=== PATIENT | female | born 1955 | race Caucasian/White ===

== ENCOUNTER → 2018-09-01 | Outpatient (CLI) | payer OTHER ==
[~2018-09-01] MED LIST: ACE325 PO; AUG875 PO; CIPHCO OT; DESO1TAB32 PO; DIP25 PO; IBU200 PO; MULT-1335 PO; THYR60TA25 PO
--- NOTE | 2018-09-01 14:01 | RADIOLOGY IMAGING REPORT ---
FACILITY: [facility] - [place] PATIENT NAME: Minoo Diaz : 1955 MR: [id number] V: [id number] EXAM DATE: ORDERING PHYSICIAN: SUKHJINDER ASCENCIO TECHNOLOGIST: Location: [facility] [place] Patient: Minoo Diaz : 1955 Visit/Account:[id number] Date of Sevice: 09/01/2018 DEXA Scan HISTORY: Postmenopausal, hyperthyroidism. COMPARISON: 10/03/2009. LUMBAR SPINE: The bone mineral density (BMD) measured from L1-L4 correlates with a Z-score of -0.9 and a T-score of -2.4 which is compatible with osteopenia as defined by the World Health Organization. The correspon ding risk of fracture in the lumbar spine is increased 4-6 times compared with a young adult referenc e population. This value has decreased by 15.2 % since the prior study. More than 5% change is cons idered significant. HIP: Bone mineral density (BMD) measured in the left total hip region correlates with a Z-score of -0.5 an d a T-score of -1.7 which is compatible with osteopenia as defined by the World Health Organization. The corresponding risk of fracture in the hip is increased 3-4 times compared with a young adult ref erence population. This value in the total hip has decreased by 15.1 % since the prior study. More t wylie 5% change is considered significant. Bone mineral density (BMD) measured in the left Femoral Neck region measures 0.851 g/cm2. IMPRESSION: 1. Lumbar spine: Compatible with osteopenia. There has been significant decrease in the bone kalsominer al density since the previous exam. 2. Left Total Hip: Compatible with osteopenia. There has been significant decrease in the bone min eral density since the previous exam. 3. Left Femoral Neck: Bone Mineral Density is 0.851 g/cm2 The next DEXA scan of this patient should include the following sites: L1-L4 and left hip. FRAX? WHO Fracture Risk Assessment Tool link: <http://www.shef.ac.uk/FRAX/tool.jsp?[email or web address]> PLEASE NOTE: 1) The World Health Organization defines low BMD as follows: T-score Normal > -1 Osteopenia < -1 and > -2.5 Osteoporosis < -2.5 without fractures Established osteoporosis < -2.5 with fractures 2) In general, you may wish to consider: Diagnosis Treatment Follow-up DEXA Normal BMD Prevention 2-3 years Osteopenia Prevention/therapy 1-2 years Osteoporosis Therapy Yearly 3) Fracture risk estimated from the T-score is more accurate for vertebral fractures (often spontane ous) than for hip fractures. Report Dictated By: Kerry Gómez MD at 09/01/2018 1:55 PM Report E-Signed By: Kerry Gómez MD at 09/01/2018 1:57 PM WSN:[email or web address]
== END ==
LOC: RAD 01:20
PROVIDERS: ATTEND Nurse Practitioner Family
DX: M85.89 Other specified disorders of bone density and structure, multiple sites (principal); V58.6XXA Passenger in pick-up truck or van injured in noncollision transport accident in traffic accident, initial encounter; Z78.0 Asymptomatic menopausal state
CPT/HCPCS: 77080